=== PATIENT | male | born 1995 | race Caucasian/White ===

== ENCOUNTER 2018-07-12 00:33 | Inpatient (IN) | payer MEDICAID ==
[~2018-07-12] VITALS: Ht 177.8 cm; Wt 57.6 kg
[~2018-07-12 00:33] MED LIST: Hydrocodone Bit/Acetaminophen PO; IBUP-1986 PO; LINE600T36 PO
[2018-07-12] MEDS ORDERED: LIDOcaine 1% 30ml preserv. free vial IJ ONE (02:40)
[2018-07-12] MEDS ORDERED: ceFAZolin 1GM/D5W- ADD-VANTAGE 50 ML IV ONE (04:20)
[2018-07-12] MEDS ORDERED: normal saline 1000ML IV soln IV ONE ×2 (04:20→07:00)
[2018-07-12] MEDS ORDERED: iohexol 300mg/ml 100ml inj. ONE (04:33)
[2018-07-12] MEDS ORDERED: vancomycin/NS 1 GM ADD-VANTAGE 250 ML IV ONE (07:00)
[2018-07-12] MEDS ORDERED: TETanus/Pertussis (Acell)/Diphther VAC/PF (Tdap-Adult) 0.5ml syringe IM ONE (07:00)
[2018-07-12 07:25] LABS: BASOPHILS # (AUTO) 0.1 X10'3 (0-0.2); BASOPHILS % (AUTO) 0.8 % (0-1); EOSINOPHILS # (AUTO) 0.2 X10'3 (0-0.9); EOSINOPHILS % (AUTO) 1.3 % (0-6); HEMATOCRIT 31.3 % (42.0-52.0); HEMOGLOBIN 10.4 g/dl (14.0-17.9); LYMPHOCYTES # (AUTO) 1.4 X10'3 (1.1-4.8); LYMPHOCYTES % (AUTO) 11.3 % (21-51); MEAN CORPUSCULAR HEMOGLOBIN 26.7 PG (27.0-31.0); MEAN CORPUSCULAR HGB CONC 33.2 % (33.0-36.5); MEAN CORPUSCULAR VOLUME 80.3 FL (78-98); MEAN PLATELET VOLUME 5.6 FL (7.4-10.4); MONOCYTES # (AUTO) 1.4 X10'3 (0-0.9); MONOCYTES % (AUTO) 11.7 % (2-12); NEUTROPHILS # (AUTO) 9.1 X10'3 (1.8-7.7); NEUTROPHILS % (AUTO) 74.9 % (42-75); PLATELET COUNT 419 X10'3 (140-440); RED BLOOD COUNT 3.89 X10'6 (4.70-6.10); RED CELL DISTRIBUTION WIDTH 12.8 % (11.5-14.5); WHITE BLOOD COUNT 12.2 X10'3 (4.5-11.0)
[2018-07-12 07:40] LABS: ALANINE AMINOTRANSFERASE 66 U/L (12-78); ALBUMIN 2.4 G/DL (3.4-5.0); ALBUMIN/GLOBULIN RATIO 0.5 (1.1-1.5); ALKALINE PHOSPHATASE 104 IU/L (46-116); ANION GAP 7 (8-16); ASPARTATE AMINO TRANSFERASE 31 U/L (10-37); BILIRUBIN,TOTAL 0.4 MG/DL (0.1-1.0); BLOOD UREA NITROGEN 11 MG/DL (7-18); BUN/CREATININE RATIO 14.1 (5.4-32.0); CALCIUM 8.4 MG/DL (8.5-10.1); CHLORIDE 98 MMOL/L (99-107); CREATININE 0.78 MG/DL (0.60-1.10); MAGNESIUM 1.9 MG/DL (1.5-2.4); POTASSIUM 3.9 MMOL/L (3.5-5.1); SODIUM 133 MMOL/L (135-145); TOTAL CARBON DIOXIDE 27.6 MMOL/L (24-32); TOTAL PROTEIN 7.1 G/DL (6.4-8.2); eGFR > 90 ML/MIN
[2018-07-12 07:44] LABS: GLUCOSE 111 MG/DL (70-104)
[2018-07-12] MEDS ORDERED: dextrose 50%-water 50ml dispensing syringe IV PRN (08:35)
[2018-07-12] MEDS ORDERED: magnesium 1gm/100ml D5W IVPB 100 ML IV PRN (08:35)
[2018-07-12] MEDS ORDERED: magnesium Cl slow-release 64mg tablet PO PRN (08:35)
[2018-07-12] MEDS ORDERED: potassium Cl 40MEQ/NS 500ml 500 ML IV PRN ×2 (08:35)
[2018-07-12] MEDS ORDERED: potassium Cl 20 mEq SR tablet PO PRN (08:35)
[2018-07-12] MEDS ORDERED: acetaminophen 325mg tablet PO PRN ×2 (08:35)
[2018-07-12] MEDS ORDERED: LORazepam 2 mg/ml vial IV PRN (08:35)
[2018-07-12] MEDS ORDERED: ondansetron/PF 4mg/2ml inj IV PRN (08:35)
[2018-07-12] MEDS ORDERED: magnesium hydroxide 30ml (MOM) UD suspension PO PRN (08:35)
[2018-07-12] MEDS ORDERED: magnesium 4gm in 100ml NS 100 ML IV PRN (08:35)
[2018-07-12] MEDS ORDERED: mag hydrox/Alum hydrox/simeth 30ml oral suspension PO PRN (08:35)
[2018-07-12] MEDS: morphine 2 MG/ML inj. syringe IV PRN ×2 (10:02→17:16)
[2018-07-12] MEDS: HYDROcodone/acetaminophen 5mg/325mg tablet PO PRN ×2 (12:32→22:07)
[2018-07-12] MEDS: normal saline 1000ml 1,000 ML IV SCH (12:32)
[2018-07-12] MEDS: nicotine 14mg patch - 24hr TD SCH (12:33)
[2018-07-12 15:00] VITALS: BP 128/76
[2018-07-12 18:00] VITALS: BP 136/77
[2018-07-12] MEDS: VANCOMYCIN 750MG IV in NS 250 ML IV SCH (18:02)
[2018-07-12] MEDS: lactobacillus rhamnosus 10,000 MMU CELLS/CAPSULE PO SCH (19:06)
[2018-07-12] MEDS ORDERED: heparin, porcine 5000 units/ml vial SQ SCH (20:00)
[2018-07-12 22:00] VITALS: BP 122/64
[2018-07-12 22:24] LABS: INR 1.1 INR; PARTIAL THROMBOPLASTIN TIME 28 SECONDS (22-32); PROTHROMBIN TIME 11.2 SECONDS (9.0-12.0)
[2018-07-12] MEDS: heparin 10,000 units/1 ML INJ IV PRN (22:40)
[2018-07-12] MEDS: heparin 25,000 UNIT/250ml bag 250 ML IV SCH (22:51)
[2018-07-13] MEDS: normal saline 1000ml 1,000 ML IV SCH ×3 (00:15→13:59)
[2018-07-13] MEDS: temazepam 15mg capsule PO PRN (01:40)
[2018-07-13] MEDS: morphine 2 MG/ML inj. syringe IV PRN ×4 (01:45→22:15)
[2018-07-13] MEDS: VANCOMYCIN 750MG IV in NS 250 ML IV SCH ×3 (01:50→18:41)
[2018-07-13 06:00] VITALS: BP 125/68
[2018-07-13] MEDS: K and/or MAG REPLACEMENT MC SCH (08:00)
[2018-07-13] MEDS ORDERED: nicotine 14mg patch - 24hr TD SCH (08:00)
[2018-07-13 08:11] LABS: ALANINE AMINOTRANSFERASE 59 U/L (12-78); ALBUMIN 2.5 G/DL (3.4-5.0); ALBUMIN/GLOBULIN RATIO 0.5 (1.1-1.5); ALKALINE PHOSPHATASE 108 IU/L (46-116); ANION GAP 9 (8-16); ASPARTATE AMINO TRANSFERASE 29 U/L (10-37); BILIRUBIN,TOTAL 0.4 MG/DL (0.1-1.0); BLOOD UREA NITROGEN 5 MG/DL (7-18); BUN/CREATININE RATIO 7.4 (5.4-32.0); CALCIUM 8.5 MG/DL (8.5-10.1); CHLORIDE 103 MMOL/L (99-107); CREATININE 0.68 MG/DL (0.60-1.10); GLUCOSE 117 MG/DL (70-104); MAGNESIUM 1.9 MG/DL (1.5-2.4); POTASSIUM 3.5 MMOL/L (3.5-5.1); SODIUM 139 MMOL/L (135-145); TOTAL CARBON DIOXIDE 27.4 MMOL/L (24-32); TOTAL PROTEIN 7.4 G/DL (6.4-8.2); eGFR > 90 ML/MIN
[2018-07-13 08:33] LABS: BASOPHILS # (AUTO) 0.1 X10'3 (0-0.2); BASOPHILS % (AUTO) 0.5 % (0-1); EOSINOPHILS # (AUTO) 0.2 X10'3 (0-0.9); EOSINOPHILS % (AUTO) 1.4 % (0-6); HEMATOCRIT 31.4 % (42.0-52.0); HEMOGLOBIN 10.4 g/dl (14.0-17.9); LYMPHOCYTES # (AUTO) 1.2 X10'3 (1.1-4.8); LYMPHOCYTES % (AUTO) 7.9 % (21-51); MEAN CORPUSCULAR HEMOGLOBIN 26.8 PG (27.0-31.0); MEAN CORPUSCULAR HGB CONC 33.3 % (33.0-36.5); MEAN CORPUSCULAR VOLUME 80.5 FL (78-98); MEAN PLATELET VOLUME 6.2 FL (7.4-10.4); MONOCYTES # (AUTO) 0.9 X10'3 (0-0.9); MONOCYTES % (AUTO) 6.2 % (2-12); NEUTROPHILS # (AUTO) 12.3 X10'3 (1.8-7.7); PLATELET COUNT 501 X10'3 (140-440); RED CELL DISTRIBUTION WIDTH 12.9 % (11.5-14.5); WHITE BLOOD COUNT 14.6 X10'3 (4.5-11.0)
[2018-07-13] MEDS: heparin 10,000 units/1 ML INJ IV PRN (08:47)
[2018-07-13] MEDS: lactobacillus rhamnosus 10,000 MMU CELLS/CAPSULE PO SCH ×2 (08:48→20:46)
[2018-07-13] MEDS: pantoprazole 40mg Tablet.DR PO SCH (08:48)
[2018-07-13] MEDS: HYDROcodone/acetaminophen 5mg/325mg tablet PO PRN ×3 (08:49→20:46)
[2018-07-13] MEDS: nicotine 14mg patch - 24hr TD SCH (08:49)
[2018-07-13] MEDS: heparin 25,000 UNIT/250ml bag 250 ML IV SCH (08:51)
[2018-07-13 10:00] VITALS: BP 118/73
[2018-07-13] MEDS: lactose-reduced food (Ensure High Protein) 237ml bottle PO SCH ×2 (13:00→18:57)
[2018-07-13 16:16] LABS: HIV ANTIBODY 1&2 RAPID NON-REACTIVE (Neg)
[2018-07-13] MEDS: enoxaparin 60mg/0.6ml syringe SUBCUT SCH (17:22)
[2018-07-13] MEDS ORDERED: VANCOMYCIN LEVEL IV ONE (17:30)
[2018-07-13 18:00] VITALS: BP 132/65
[2018-07-13 22:00] VITALS: BP 120/65
[2018-07-14] MEDS: HYDROcodone/acetaminophen 5mg/325mg tablet PO PRN ×4 (00:57→21:48)
[2018-07-14] MEDS: temazepam 15mg capsule PO PRN ×2 (00:57→19:51)
[2018-07-14] MEDS: VANCOMYCIN 750MG IV in NS 250 ML IV SCH ×2 (02:18→11:24)
[2018-07-14] MEDS: morphine 2 MG/ML inj. syringe IV PRN ×4 (02:19→20:22)
[2018-07-14 04:41] LABS: BASOPHILS # (AUTO) 0.1 X10'3 (0-0.2); BASOPHILS % (AUTO) 0.5 % (0-1); EOSINOPHILS # (AUTO) 0.4 X10'3 (0-0.9); EOSINOPHILS % (AUTO) 3.2 % (0-6); HEMATOCRIT 27.1 % (42.0-52.0); HEMOGLOBIN 9.1 g/dl (14.0-17.9); LYMPHOCYTES # (AUTO) 1.6 X10'3 (1.1-4.8); LYMPHOCYTES % (AUTO) 13.1 % (21-51); MEAN CORPUSCULAR HEMOGLOBIN 26.5 PG (27.0-31.0); MEAN CORPUSCULAR HGB CONC 33.6 % (33.0-36.5); MEAN PLATELET VOLUME 5.5 FL (7.4-10.4); MONOCYTES % (AUTO) 8.2 % (2-12); PLATELET COUNT 486 X10'3 (140-440); RED BLOOD COUNT 3.44 X10'6 (4.70-6.10); RED CELL DISTRIBUTION WIDTH 12.9 % (11.5-14.5)
[2018-07-14 04:54] LABS: ALBUMIN 1.9 G/DL (3.4-5.0); ANION GAP 7 (8-16); BLOOD UREA NITROGEN 6 MG/DL (7-18); BUN/CREATININE RATIO 9.7 (5.4-32.0); CALCIUM 7.5 MG/DL (8.5-10.1); CHLORIDE 107 MMOL/L (99-107); CREATININE 0.62 MG/DL (0.60-1.10); MAGNESIUM 1.8 MG/DL (1.5-2.4); SODIUM 140 MMOL/L (135-145); TOTAL CARBON DIOXIDE 26.2 MMOL/L (24-32); eGFR > 90 ML/MIN
[2018-07-14 04:59] LABS: GLUCOSE 98 MG/DL (70-104); POTASSIUM 2.9 MMOL/L (3.5-5.1)
[2018-07-14] MEDS: potassium Cl 20 mEq SR tablet PO PRN ×2 (05:09→16:52)
[2018-07-14 06:40] VITALS: BP 115/77
[2018-07-14] MEDS: nicotine 14mg patch - 24hr TD SCH (07:12)
[2018-07-14] MEDS: lactobacillus rhamnosus 10,000 MMU CELLS/CAPSULE PO SCH ×2 (07:12→19:14)
[2018-07-14] MEDS: enoxaparin 60mg/0.6ml syringe SUBCUT SCH ×2 (07:12→19:14)
[2018-07-14] MEDS: pantoprazole 40mg Tablet.DR PO SCH (07:12)
[2018-07-14] MEDS: K and/or MAG REPLACEMENT MC SCH (07:15)
[2018-07-14] MEDS: lactose-reduced food (Ensure High Protein) 237ml bottle PO SCH ×7 (08:29→18:26)
[2018-07-14 10:00] VITALS: BP 116/63
[2018-07-14] MEDS ORDERED: VANCOMYCIN LEVEL IV ONE (10:45)
[2018-07-14 18:03] VITALS: BP 111/69
[2018-07-14] MEDS: vancomycin inj 1,250 MG in normal saline 250ml IV soln 250 ML IV SCH (19:14)
[2018-07-14 22:30] VITALS: BP 134/71
[2018-07-15] MEDS: vancomycin inj 1,250 MG in normal saline 250ml IV soln 250 ML IV SCH ×4 (03:52→21:01)
[2018-07-15] MEDS: morphine 2 MG/ML inj. syringe IV PRN (04:09)
[2018-07-15] MEDS: HYDROcodone/acetaminophen 5mg/325mg tablet PO PRN ×4 (05:41→21:02)
[2018-07-15 06:22] LABS: BASOPHILS # (AUTO) 0.2 X10'3 (0-0.2); BASOPHILS % (AUTO) 1.2 % (0-1); EOSINOPHILS # (AUTO) 0.3 X10'3 (0-0.9); EOSINOPHILS % (AUTO) 2.2 % (0-6); HEMATOCRIT 32.3 % (42.0-52.0); LYMPHOCYTES # (AUTO) 1.3 X10'3 (1.1-4.8); LYMPHOCYTES % (AUTO) 9.2 % (21-51); MEAN CORPUSCULAR HEMOGLOBIN 26.8 PG (27.0-31.0); MEAN CORPUSCULAR VOLUME 78.8 FL (78-98); MEAN PLATELET VOLUME 5.8 FL (7.4-10.4); MONOCYTES # (AUTO) 1.1 X10'3 (0-0.9); MONOCYTES % (AUTO) 7.4 % (2-12); NEUTROPHILS # (AUTO) 11.5 X10'3 (1.8-7.7); PLATELET COUNT 655 X10'3 (140-440); WHITE BLOOD COUNT 14.4 X10'3 (4.5-11.0)
[2018-07-15 06:34] LABS: ALBUMIN 2.4 G/DL (3.4-5.0); ANION GAP 9 (8-16); BLOOD UREA NITROGEN 5 MG/DL (7-18); BUN/CREATININE RATIO 7.4 (5.4-32.0); CALCIUM 8.9 MG/DL (8.5-10.1); CHLORIDE 101 MMOL/L (99-107); CREATININE 0.68 MG/DL (0.60-1.10); MAGNESIUM 1.9 MG/DL (1.5-2.4); POTASSIUM 3.8 MMOL/L (3.5-5.1); SODIUM 136 MMOL/L (135-145); TOTAL CARBON DIOXIDE 26.4 MMOL/L (24-32); eGFR > 90 ML/MIN
[2018-07-15 06:39] LABS: GLUCOSE 107 MG/DL (70-104)
[2018-07-15] MEDS: K and/or MAG REPLACEMENT MC SCH (07:52)
[2018-07-15] MEDS: lactose-reduced food (Ensure High Protein) 237ml bottle PO SCH ×4 (08:00→13:00)
[2018-07-15] MEDS: lactobacillus rhamnosus 10,000 MMU CELLS/CAPSULE PO SCH ×2 (08:07→21:01)
[2018-07-15 08:08] VITALS: BP 121/44
[2018-07-15] MEDS: nicotine 14mg patch - 24hr TD SCH (08:08)
[2018-07-15] MEDS: pantoprazole 40mg Tablet.DR PO SCH (08:08)
[2018-07-15] MEDS: enoxaparin 60mg/0.6ml syringe SUBCUT SCH ×2 (08:08→21:03)
[2018-07-15 08:58] LABS: GIANT PLATELET FEW
[2018-07-15 08:59] LABS: PLATELET ESTIMATE INCREASED
[2018-07-15 10:00] VITALS: BP 119/74
[2018-07-15 18:30] VITALS: BP 138/76
[2018-07-15] MEDS ORDERED: VANCOMYCIN LEVEL IV ONE (19:30)
[2018-07-15] MEDS: temazepam 15mg capsule PO PRN (21:02)
[2018-07-15 22:00] VITALS: BP 133/68
[2018-07-16] MEDS: morphine 2 MG/ML inj. syringe IV PRN (02:41)
[2018-07-16] MEDS: HYDROcodone/acetaminophen 5mg/325mg tablet PO PRN ×4 (03:42→19:36)
[2018-07-16] MEDS: vancomycin inj 1,250 MG in normal saline 250ml IV soln 250 ML IV SCH ×3 (03:43→19:35)
[2018-07-16 04:10] LABS: BASOPHILS # (AUTO) 0.2 X10'3 (0-0.2); BASOPHILS % (AUTO) 1.1 % (0-1); EOSINOPHILS # (AUTO) 0.3 X10'3 (0-0.9); EOSINOPHILS % (AUTO) 1.8 % (0-6); HEMATOCRIT 34.4 % (42.0-52.0); HEMOGLOBIN 11.4 g/dl (14.0-17.9); LYMPHOCYTES # (AUTO) 1.4 X10'3 (1.1-4.8); LYMPHOCYTES % (AUTO) 8.7 % (21-51); MEAN CORPUSCULAR HEMOGLOBIN 26.6 PG (27.0-31.0); MEAN CORPUSCULAR HGB CONC 33.3 % (33.0-36.5); MEAN CORPUSCULAR VOLUME 79.9 FL (78-98); MEAN PLATELET VOLUME 5.7 FL (7.4-10.4); MONOCYTES # (AUTO) 0.9 X10'3 (0-0.9); MONOCYTES % (AUTO) 5.5 % (2-12); NEUTROPHILS # (AUTO) 13.7 X10'3 (1.8-7.7); NEUTROPHILS % (AUTO) 82.9 % (42-75); PLATELET COUNT 669 X10'3 (140-440); RED BLOOD COUNT 4.31 X10'6 (4.70-6.10); RED CELL DISTRIBUTION WIDTH 13.2 % (11.5-14.5); WHITE BLOOD COUNT 16.5 X10'3 (4.5-11.0)
[2018-07-16 04:16] LABS: ALBUMIN 2.4 G/DL (3.4-5.0); ANION GAP 8 (8-16); BLOOD UREA NITROGEN 7 MG/DL (7-18); BUN/CREATININE RATIO 7.9 (5.4-32.0); CALCIUM 8.9 MG/DL (8.5-10.1); CHLORIDE 100 MMOL/L (99-107); CREATININE 0.89 MG/DL (0.60-1.10); MAGNESIUM 1.9 MG/DL (1.5-2.4); POTASSIUM 3.8 MMOL/L (3.5-5.1); SODIUM 137 MMOL/L (135-145); TOTAL CARBON DIOXIDE 29.5 MMOL/L (24-32); eGFR > 90 ML/MIN
[2018-07-16 04:18] LABS: GLUCOSE 142 MG/DL (70-104); VANCOMYCIN,TROUGH 14.3 UG/ML (6.0-14.0)
[2018-07-16 04:55] LABS: LARGE PLATELETS FEW; PLATELET ESTIMATE INCREASED
[2018-07-16 05:00] VITALS: BP 131/85
[2018-07-16] MEDS: K and/or MAG REPLACEMENT MC SCH (06:56)
[2018-07-16] MEDS: nicotine 14mg patch - 24hr TD SCH (07:39)
[2018-07-16] MEDS: pantoprazole 40mg Tablet.DR PO SCH (07:40)
[2018-07-16] MEDS: enoxaparin 60mg/0.6ml syringe SUBCUT SCH ×2 (07:40→19:35)
[2018-07-16] MEDS: lactobacillus rhamnosus 10,000 MMU CELLS/CAPSULE PO SCH ×2 (07:40→19:35)
[2018-07-16 08:47] LABS: RPR Reactive (Non Reactive)
[2018-07-16 10:00] VITALS: BP 111/71
[2018-07-16] MEDS ORDERED: penicillin G benzathine 1.2 million unit/2ml syringe IM ONE (11:25)
[2018-07-16 18:00] VITALS: BP 140/79
[2018-07-16 22:00] VITALS: BP 124/64
[2018-07-17] MEDS: vancomycin inj 1,250 MG in normal saline 250ml IV soln 250 ML IV SCH ×3 (03:55→20:25)
[2018-07-17 06:42] VITALS: BP 116/54
[2018-07-17] MEDS: enoxaparin 60mg/0.6ml syringe SUBCUT SCH ×2 (07:15→20:25)
[2018-07-17] MEDS: pantoprazole 40mg Tablet.DR PO SCH (07:15)
[2018-07-17] MEDS: lactobacillus rhamnosus 10,000 MMU CELLS/CAPSULE PO SCH ×2 (07:15→20:25)
[2018-07-17] MEDS: nicotine 14mg patch - 24hr TD SCH (07:15)
[2018-07-17] MEDS: K and/or MAG REPLACEMENT MC SCH (07:59)
[2018-07-17 10:23] VITALS: BP 100/39
[2018-07-17 11:35] LABS: BASOPHILS # (AUTO) 0.1 X10'3 (0-0.2); BASOPHILS % (AUTO) 0.5 % (0-1); EOSINOPHILS # (AUTO) 0.6 X10'3 (0-0.9); EOSINOPHILS % (AUTO) 3.3 % (0-6); HEMATOCRIT 32.9 % (42.0-52.0); HEMOGLOBIN 10.8 g/dl (14.0-17.9); LYMPHOCYTES # (AUTO) 1.9 X10'3 (1.1-4.8); LYMPHOCYTES % (AUTO) 11.2 % (21-51); MEAN CORPUSCULAR HEMOGLOBIN 26.3 PG (27.0-31.0); MEAN CORPUSCULAR HGB CONC 32.8 % (33.0-36.5); MEAN CORPUSCULAR VOLUME 80.2 FL (78-98); MEAN PLATELET VOLUME 5.9 FL (7.4-10.4); MONOCYTES # (AUTO) 1.3 X10'3 (0-0.9); MONOCYTES % (AUTO) 7.6 % (2-12); NEUTROPHILS # (AUTO) 13.2 X10'3 (1.8-7.7); NEUTROPHILS % (AUTO) 77.4 % (42-75); PLATELET COUNT 671 X10'3 (140-440); RED CELL DISTRIBUTION WIDTH 13.4 % (11.5-14.5)
[2018-07-17 11:46] LABS: ALBUMIN 2.2 G/DL (3.4-5.0); ANION GAP 9 (8-16); BLOOD UREA NITROGEN 19 MG/DL (7-18); BUN/CREATININE RATIO 17.4 (5.4-32.0); CALCIUM 8.8 MG/DL (8.5-10.1); CHLORIDE 99 MMOL/L (99-107); CREATININE 1.09 MG/DL (0.60-1.10); POTASSIUM 3.9 MMOL/L (3.5-5.1); SODIUM 135 MMOL/L (135-145); TOTAL CARBON DIOXIDE 27.4 MMOL/L (24-32); eGFR 82 ML/MIN
[2018-07-17 11:48] LABS: GLUCOSE 102 MG/DL (70-104)
[2018-07-17 18:00] VITALS: BP 121/62
[2018-07-17] MEDS ORDERED: ibuprofen tablet 400 MG TABLET PO PRN (18:05)
[2018-07-17] MEDS: HYDROcodone/acetaminophen 5mg/325mg tablet PO PRN (20:37)
[2018-07-17 22:00] VITALS: BP 105/57
[2018-07-18] MEDS: vancomycin inj 1,250 MG in normal saline 250ml IV soln 250 ML IV SCH ×3 (04:39→20:07)
[2018-07-18 06:00] VITALS: BP 133/68
[2018-07-18 07:12] LABS: ALBUMIN 2.2 G/DL (3.4-5.0); ANION GAP 7 (8-16); BLOOD UREA NITROGEN 17 MG/DL (7-18); BUN/CREATININE RATIO 18.5 (5.4-32.0); CALCIUM 8.9 MG/DL (8.5-10.1); CHLORIDE 102 MMOL/L (99-107); CREATININE 0.92 MG/DL (0.60-1.10); POTASSIUM 3.8 MMOL/L (3.5-5.1); SODIUM 138 MMOL/L (135-145); TOTAL CARBON DIOXIDE 28.6 MMOL/L (24-32); eGFR > 90 ML/MIN
[2018-07-18 07:26] LABS: GLUCOSE 102 MG/DL (70-104)
[2018-07-18] MEDS: K and/or MAG REPLACEMENT MC SCH (08:00)
[2018-07-18] MEDS: lactobacillus rhamnosus 10,000 MMU CELLS/CAPSULE PO SCH ×2 (08:23→20:08)
[2018-07-18] MEDS: pantoprazole 40mg Tablet.DR PO SCH (08:23)
[2018-07-18] MEDS: enoxaparin 60mg/0.6ml syringe SUBCUT SCH ×2 (08:23→20:08)
[2018-07-18] MEDS: nicotine 14mg patch - 24hr TD SCH (08:24)
[2018-07-18 10:00] VITALS: BP 121/70
[2018-07-18] MEDS: HYDROcodone/acetaminophen 5mg/325mg tablet PO PRN ×2 (12:50→20:09)
[2018-07-18 18:00] VITALS: BP 119/62
[2018-07-18] MEDS: temazepam 15mg capsule PO PRN (20:09)
[2018-07-18 22:00] VITALS: BP 128/69
[2018-07-19] MEDS: vancomycin inj 1,250 MG in normal saline 250ml IV soln 250 ML IV SCH (04:05)
[2018-07-19 06:00] VITALS: BP 124/72
[2018-07-19] MEDS: pantoprazole 40mg Tablet.DR PO SCH (07:07)
[2018-07-19] MEDS: enoxaparin 60mg/0.6ml syringe SUBCUT SCH (07:07)
[2018-07-19] MEDS: nicotine 14mg patch - 24hr TD SCH (07:07)
[2018-07-19] MEDS: lactobacillus rhamnosus 10,000 MMU CELLS/CAPSULE PO SCH (07:07)
[2018-07-19] MEDS: HYDROcodone/acetaminophen 5mg/325mg tablet PO PRN (07:14)
[2018-07-19] MEDS: K and/or MAG REPLACEMENT MC SCH (07:16)
== END 2018-07-19 09:15 | disposition left against medical advice (07) | DRG 720 ==
LOC: ER 00:34 → ED HOLD 08:33 → ORTHO 4S 11:13
PROVIDERS: ADMIT Internal Medicine; ATTEND Family Medicine
PROC: 0Y973ZZ Drainage of Right Femoral Region, Percutaneous Approach (ICD-10-PCS; principal; 2018-07-12)
DX: A41.02 Sepsis due to Methicillin resistant Staphylococcus aureus (principal); I82.622 Acute embolism and thrombosis of deep veins of left upper extremity; E87.1 Hypo-osmolality and hyponatremia; F11.20 Opioid dependence, uncomplicated; B19.10 Unspecified viral hepatitis B without hepatic coma; A51.0 Primary genital syphilis; B19.20 Unspecified viral hepatitis C without hepatic coma; F17.210 Nicotine dependence, cigarettes, uncomplicated; F12.10 Cannabis abuse, uncomplicated; N48.5 Ulcer of penis; Z53.21 Procedure and treatment not carried out due to patient leaving prior to being seen by health care provider; I80.8 Phlebitis and thrombophlebitis of other sites; L03.114 Cellulitis of left upper limb; N50.9 Disorder of male genital organs, unspecified; Z59.0 Homelessness; Z95.1 Presence of aortocoronary bypass graft; Z71.6 Tobacco abuse counseling; Z71.51 Drug abuse counseling and surveillance of drug abuser
CPT/HCPCS: 36415; 73201; 80048; 80053; 80202; 83605; 83735; 84145; 85025; 85610; 85730; 86592; 86703; 87040; 87070; 87077; 87186; 87491; 90471; 90715; 93306; 93971; 96365; 96368; 99285; G0378; J0561; J0690; J1644; J1650; J2060; J2270; J3370; J3490; J7030; Q9967

== ENCOUNTER 2019-11-12 23:08 | Emergency (ER) | payer MEDICAID ==
[~2019-11-12] VITALS: Ht 177.8 cm; Wt 68.1 kg
[2019-11-12 23:17] VITALS: BP 152/74
[2019-11-12] MEDS ORDERED: PENI250T2 PO (23:34)
[2019-11-12] MEDS ORDERED: LIDO20SO16 PO (23:34)
== END 2019-11-12 23:45 | disposition home or self-care (01) ==
LOC: ER 23:09
DX: J02.0 Streptococcal pharyngitis (principal); F12.90 Cannabis use, unspecified, uncomplicated; F11.90 Opioid use, unspecified, uncomplicated; Z95.1 Presence of aortocoronary bypass graft; Z79.899 Other long term (current) drug therapy
CPT/HCPCS: 99283

== ENCOUNTER 2020-04-04 20:27 | Emergency (ER) | payer MEDICAID ==
[~2020-04-04] VITALS: Ht 172.7 cm; Wt 74.6 kg
[~2020-04-04 20:27] MED LIST changes: -Hydrocodone Bit/Acetaminophen PO; -IBUP-1986 PO; +LIDO20SO16 PO; -LINE600T36 PO
[2020-04-04 20:28] VITALS: BP 177/97
[2020-04-04] MEDS ORDERED: SULF1TAB49 PO (23:10)
[2020-04-04] MEDS ORDERED: ondansetron 4mg rapidly disintigrating tab PO ONE (23:10)
[2020-04-04] MEDS ORDERED: sulfamethoxazole/trimethoprim DS (800/160mg) tablet PO ONE (23:10)
[2020-04-04] MEDS ORDERED: bacitracin 15gm ointment TP ONE (23:10)
== END 2020-04-04 23:25 | disposition home or self-care (01) ==
LOC: ER 20:27
DX: L03.116 Cellulitis of left lower limb (principal); F12.90 Cannabis use, unspecified, uncomplicated; F11.90 Opioid use, unspecified, uncomplicated; Z79.899 Other long term (current) drug therapy
CPT/HCPCS: 99284

== ENCOUNTER 2021-01-19 10:23 | Emergency (ER) | payer MEDICAID ==
[~2021-01-19] VITALS: Ht 175.3 cm; Wt 77.0 kg
[2021-01-19 10:27] VITALS: BP 159/82
--- NOTE | 2021-01-19 12:17 | NUR ---
NOT IN LOBBY. PA WAS GOING TO BRING PT. BACK. WHEN WE COULD NOT FIND THEM IN THE ROOM WE CALLED FOR PT. OUT IN THE LOBBY NO ANSWER
== END 2021-01-19 17:42 | disposition left against medical advice (07) ==
LOC: ER 10:23
DX: J02.0 Streptococcal pharyngitis (principal); Z53.21 Procedure and treatment not carried out due to patient leaving prior to being seen by health care provider